=== PATIENT | male | born 1955 | race Two or more races ===

== ENCOUNTER 2020-10-03 07:47 | Outpatient (CLI) | payer OTHER, SELFPAY ==
--- NOTE | 2020-10-03 08:41 | ECG_ITS ---
Measurements Intervals [place] Rate: 66 P: SD: 0 QRS: -20 QRSD: 114 T: -12 QT: 385 QTc: 405 Interpretive Statements ATRIAL FIBRILLATION INTRAVENTRICULAR CONDUCTION DELAY VOLTAGE CRITERIA FOR LVH BORDERLINE R WAVE PROGRESSION, ANTERIOR LEADS BORDERLINE T WAVE ABNORMALITY- INFERIOR LEADS BORDERLINE ECG Electronically Signed On 10-03-2020 9:03:08 CDT by Juan Molina D.O.
[2020-10-03 09:33] LABS: Basophils Percent Auto 0.7 % (0.2-1.2); Eosinophils Absolute Auto 0.2 K/mm3 (0-0.3); Eosinophils Percent Auto 3.4 % (0-4.4); Hematocrit 42.7 % (42.0-52.0); Hemoglobin 14.4 g/dL (14.0-18.0); Immature Granulocyte Absolute 0.03 K/mm3 (0.00-0.031); Immature Granulocyte Percent A 0.6 % (0-0.5); Lymphocytes Absolute Auto 1.41 K/mm3 (0.9-3.2); Lymphocytes Percent Auto 26.3 % (18.3-44.2); Mean Corpuscular HGB Conc 33.7 g/dl (32-36); Mean Corpuscular Hemoglobin 30.3 pg (26-34); Mean Corpuscular Volume 89.9 fl (80-100); Mean Platelet Volume 10.8 fl (7.4-10.4); Monocytes Absolute Auto 0.6 K/mm3 (0.1-0.6); Monocytes Percent Auto 11.9 % (2.6-8.5); Neutrophils Absolute Auto 3.1 K/mm3 (1.3-6.7); Neutrophils Percent Auto 57.1 % (45.5-73.1); Platelet Count Result 288 k/mm3 (150-375); Red Blood Count 4.75 M/mm3 (4.6-6.20); White Blood Count 5.4 K/mm3 (4.5-10.0)
== END 2020-10-03 07:48 | disposition home or self-care (01) ==
PROVIDERS: PCP Family Medicine; Visit Provider Orthopaedic Surgery
DX: Z01.818 Encounter for other preprocedural examination (principal); M17.12 Unilateral primary osteoarthritis, left knee
CPT/HCPCS: 36415; 85025; 93005

== ENCOUNTER → 2020-10-11 03:00 | Outpatient (CLI) | payer OTHER, SELFPAY ==
[2020-10-11 19:43] LABS: SARS-CoV-2 RNA PCR Negative
== END ==
PROVIDERS: PCP Family Medicine; Visit Provider Orthopaedic Surgery
DX: Z01.812 Encounter for preprocedural laboratory examination (principal); Z20.822 Contact with and (suspected) exposure to COVID-19
CPT/HCPCS: C9803; U0003; U0005

== ENCOUNTER 2020-10-14 00:56 | Day surgery (SDC) | payer OTHER, SELFPAY ==
[2020-10-03 08:24] VITALS: BMI 27.8
[2020-10-03 08:48] VITALS: BP 133/88; PULSE 83; RESP 16; TEMP 36.7; O2SAT 99
--- NOTE | 2020-10-13 11:48 | WPDANESEPPF ---
Anes - Initial Pre Proc Eval Procedure: Operation Date: 10/14/20 10:30 Proposed Procedures p Left Partial Knee Arthroplasty - Tacho Sinha MD Date/Time: 10/13/20 11:48 Surgeon: Tacho Sinha MD Pre Op Diagnosis: primary OA Left Knee Patient Data Age: 65 Gender: M Height: 1.83 m Weight: 92.9 kg Last Vital Signs Temp 36.7 C 10/03/20 08:48 Pulse 83 10/03/20 08:48 Resp 16 10/03/20 08:48 BP 133/88 10/03/20 08:48 Pulse Ox 99 10/03/20 08:48 Allergies Allergy/AdvReac Type Severity Reaction Status Date / Time No Known Allergies Allergy Unverified 10/14/20 08:42 Home Medications Medication Instructions Recorded Confirmed Type aspirin 325 mg tablet 325 mg PO HS 08/28/20 10/14/20 History naproxen sodium [Aleve] 220 mg PO Q12H PRN 10/03/20 10/14/20 History niacin 1,000 mg PO QAM 10/03/20 10/14/20 History red yeast rice 1,200 mg PO DAILY 10/03/20 10/14/20 History zinc 50 mg PO QAM 10/03/20 10/14/20 History ECG: Date of Service: 10/03/20 Procedure(s): CA 12 lead EKG Accession Number(s): [id number] cc: ~ Measurements Intervals [place] Rate: 66 P: [place]: 0 QRS: -20 QRSD: 114 T: -12 QT: 385 QTc: 405 Interpretive Statements ATRIAL FIBRILLATION INTRAVENTRICULAR CONDUCTION DELAY VOLTAGE CRITERIA FOR LVH BORDERLINE R WAVE PROGRESSION, ANTERIOR LEADS BORDERLINE T WAVE ABNORMALITY- INFERIOR LEADS BORDERLINE ECG Electronically Signed On 10-03-2020 9:03:08 CDT by Juan Molina D.O. Dictated By: Juan Molina DO 10/03/20 0903 Patient hx anesthesia problems: none Family hx anesthesia problems: none PMFSH Past Medical History Medical History (Updated 10/13/20 @ 11:49 by Eddie Palacios MD) Arthritis of left knee History of atrial fibrillation cardioverted x 3, remains in afib. asymptomatic Left knee pain Family History Family History Mother Pancreatic cancer Social History Social History Smoking status: Never smoker Additional smoking assessment comments: DENIES ANY FORM OF TOBACCO USE Alcohol intake: never Drinks per week: 3 Living arrangements: with family Spiritual care concerns: No Anes - Eval Final PreProcedure Day of Procedure 10/13/20 11:48 Patient weight: overweight Heart: regular rate and rhythm Lungs: clear to auscultation and normal air movement Airway: Mallampati scale class II Neurological: alert and oriented Last oral intake: >/= 8 hours ASA classification: III Emergent: no Anesthetic plan: proceed Anesthesia type and monitoring: general LMA Informed Consent: The patient's anesthetic plan and its attendant risks and benefits were discussed with the patient/family/POA. Questions were solicited and answers provided to the satisfaction of the patient/family/POA.
[2020-10-14] VITALS (10 sets, daily range): BP systolic 125–143; BP diastolic 77–93; PULSE 72–94; RESP 13–21; TEMP 36.2–36.8; O2SAT 95–100
--- NOTE | ~2020-10-14 | XR_ITS ---
EXAMINATION: XR knee LT 2V DATE: 10/14/2020 12:27 INDICATION: Left knee arthroplasty. Postop. TECHNIQUE: 2 views of left knee were obtained. COMPARISON: Left knee radiographs 09/03/2020 FINDINGS: There is a medial compartment arthroplasty in near-anatomic alignment. No fracture. There i s mild osteoarthritis of lateral and patellofemoral compartments characterized by tiny marginal osteo phytes. There is gas in the soft tissues, consistent with recent surgery. IMPRESSION: 1. Medial compartment arthroplasty in near-anatomic alignment. 2. Mild osteoarthritis of lateral and patellofemoral compartments. Reviewed, dictated and finalized at location B.
--- NOTE | 2020-10-14 07:20 | WPDHPUPDATE1 ---
History and Physical Update Update Date/Time: 10/14/20 07:20 Note: hpi from most recent H and P is incorrect. The correct procedure is partial knee arthroplasty. History and Physical has been reviewed, including an updated exam of the patient. There are NO changes in the patient's condition. Risks, benefits, and alternatives have been discussed and questions answered. Patient agrees to proceed with procedure.
[2020-10-14] MEDS: ACETAMINOPHEN 500 MG TABLET 1000 MG PO (08:47)
--- NOTE | 2020-10-14 08:57 | WPDANESPNB ---
Anes - Peripheral Nerve Block Date/Time: 10/14/20 08:57 I have discussed with the patient/family/POA the placement of a peripheral nerve block for post-operative pain management, including associated risks, benefits, complications, and side effects. Alternative methods of post-operative analgesia were detailed. Questions were solicited and answers provided to the satisfaction of the patient/family/POA. Time-Out: A pre-procedural Time-Out was completed immediately before starting the procedure and confirmed: Patient Identification, Site, Procedure, Patient Position and the Availability of Requisite Equipment. Clinical Indications: Acute post-operative pain management requested by the operative surgeon. Nerve Block Insertion Note Anes-nerve block: adductor canal left Patient position: supine Skin prep: chlorhexidine Needle: 22 gauge, stimulating, insulated echogenic needle. Needle length: 80 mm Technique: ultrasound Technique comment: in plane Injectate: bupivacaine 0.5% with epi 5 mcg/ml (30cc) Observations: tolerated well Complications: none Procedure start time:: 950 Procedure end time:: 955
[2020-10-14] MEDS: LACTATED RINGERS 1,000 ML 30 ML IV CONT ×2 (09:20→11:50)
[2020-10-14] MEDS: TRANEXAMIC ACID 1,000MG/ISO100 1,000 MG/100 ML BAG 200 MG IVPB (09:50)
[2020-10-14] MEDS: ceFAZolin 2 GM/D5W 50 ML 2 GM/50 ML BAG IVPB (10:01)
--- NOTE | 2020-10-14 10:05 | P.OP_ITS ---
Procedure Note - Detailed Date of procedure: 10/14/20 Pre-op diagnosis: primary OA Left Knee Post-op diagnosis: same Procedure performed: Partial knee arthroplasty, medial compartment. Implants: [employer] PKR X3 system tibial insert size #4, 8 mm thickness, femoral component size 5. Tibial base tibial base plate size 4. Anesthesia: GETA and regional (subsartorial block.) Surgeon: Tacho Sinha MD [employer] Chief: Gemini Harden PA-C Estimated blood loss (mL): 50 Tourniquet time (min): 59 Drains: No Pathology: none sent Complications: None Condition: stable Disposition: PACU Findings: Physician assistant technician, Gemini Harden PA-C, required for surgery; including patient positioning, draping, tissue retraction, maintaining instrument position, cement removal, wound closure, and dressing placement. Operative details: The patient was given a general anesthetic. Preoperative antibiotics were given. The knee was prepped and draped in the usual sterile fashion. A longitudinal incision was created along the medial aspect of the patellar tendon. A minimally invasive optimized mid vastus approach was comple arvind. No medial release was taken. The external alignment guide was used to cut the tibia with anatomic posterior slope. A 4 millimeter resection was taken. The spacer block technique was utilized to measure flexion and extension gaps after the osteophytes were removed. The difference was used to calculate the distal resection. The distal cutting block was utilized to cut the distal femur. The AP and chamfer block was utilized for this last cuts. The femur and tibia were sized. Range of motion and gap balancing was assessed. This was tested with the 1.5 millimeter spacer. The bony surfaces were cleaned with lavaged. Lug holes were drilled. The real components were cemented into position. Excess cement was carefully removed. The tourniquet was released. Meticulous hemostasis was maintained. The wound was closed with interrupted 1 Vicryl suture followed by a running 0 Quill suture and 2-0 Quill suture. Steri-Strips are placed in the skin the patient was extubated and brought to recovery room in stable condition. There were no complications.
== END 2020-10-14 14:24 | disposition home or self-care (01) ==
PROVIDERS: PCP Family Medicine; Visit Provider Orthopaedic Surgery
PROC: (CPT 27446; principal; 2020-10-14 10:30)
DX: M17.12 Unilateral primary osteoarthritis, left knee (principal); G89.18 Other acute postprocedural pain; I48.91 Unspecified atrial fibrillation; Z79.82 Long term (current) use of aspirin
CPT/HCPCS: 27446; 64447; 36415; 73560; 85025; 93005; 97110; 97161; A9270; C1776; C9803; J0171; J0690; J1885; J2250; J2270; J2405; J2704; J2795; J3010; J7120; U0003; U0005